=== PATIENT | female | born 1990 | race Caucasian/White ===

== ENCOUNTER 2016-10-14 23:05 | Emergency (ER) | payer OTHER ==
[~2016-10-14] VITALS: Ht 180.3 cm; Wt 65.0 kg
[~2016-10-14 23:05] MED LIST: AUGMENTIN875 MG PO; CELEXA20 MG PO; CLEOCIN150 MG PO; FEOSOL325 MG PO; FERROUS SULFAT325 MG PO; IBUPROFEN800 MG PO; MOTRIN600 MG PO; NO HOME MEDS; NORCO 5/3251 TABLET PO; ONDANSETRON HCL8 MG PO; PEN-VEE K,VEET500 MG PO; PERCOCET 5/31 TABLET PO; PNV PRENATAL P1 EACH PO; REGLAN10 MG PO; SERTRALINE HCL100 MG PO; SERTRALINE HCL50 MG PO; SPRINTEC1 EACH PO; ULTRAM50 MG PO; ZANTAC150 MG PO; ZOFRAN4 MG PO; ZOFRAN8 MG PO
[2016-10-14 23:58] LABS: HEMATOCRIT 35.8 % (36.0-46.0); MCH 27.5 PG (29.0-34.0); MCHC 32.1 G/DL (30.0-36.0); MCV 85.6 FL (83-99); MEAN PLAT.VOLUME 10.1 uM^3 (9.5-12.4); PLATELET COUNT 279 K/uL (156-360); RBC DIS.WIDTH-CV 13.7 % (11.8-14.6); RBC DIS.WIDTH-SD 42.8 % (39-53); RED BLOOD COUNT 4.18 M/uL (3.80-5.20); WHITE BLOOD COUNT 6.5 K/uL (4.1-10.2)
[2016-10-15 00:07] LABS: CHLORIDE 107 mEq/L (99-109); POTASSIUM 4.1 mEq/L (3.7-5.4); SODIUM 142 mEq/L (136-147)
[2016-10-15 00:09] LABS: GLUCOSE 104 mg/dL (70-99)
[2016-10-15 00:10] LABS: ADD MIUA? YES; BILIRUBIN NEGATIVE; BLOOD NEGATIVE; COLOR YELLOW ((YELLOW)); GLUCOSE (STRIP) NEGATIVE; KETONES NEGATIVE; LEUKOCYTES NEGATIVE; NITRITE NEGATIVE; PROTEIN (STRIP) 30; SPECIFIC GRAVITY 1.028 (1.000-1.030); UROBILINOGEN 0.2 MG/DL (0.2-1.0)
[2016-10-15 00:10] LABS: ANION GAP 7 MEQ/L (2-14)
[2016-10-15 00:11] LABS: TOTAL BILIRUBIN 0.4 mg/dL (0.0-1.0)
[2016-10-15 00:13] LABS: ALKALINE PHOSPHATASE 38 IU/L (3-129); GFR ESTIMATE (CALCULATED) > 59 mL/min/
[2016-10-15 00:14] LABS: BACTERIA NONE SEEN /HPF; EPITHELIAL CELLS RARE /HPF; MUCUS 1+ /LPF; RED BLOOD CELLS 0-5 /HPF (0-5); UCUL ADDED? NO; WHITE BLOOD CELLS 0-5 /HPF (0-5)
[2016-10-15 00:14] LABS: UREA NITROGEN (BUN) 15 mg/dL (9-23)
[2016-10-15 00:21] LABS: QUANTITATIVE HCG < 4.0 MIU/ML
[2016-10-15 01:26] LABS: LIPASE 38 U/L (1.0-51.0)
[2016-10-15] MEDS ORDERED: NAPROXEN500 MG PO (02:23)
[2016-10-15 02:39] VITALS: BP 100/64
== END 2016-10-15 02:41 | disposition home or self-care (01) ==
LOC: EME 23:05
DX: R10.84 Generalized abdominal pain (principal); R63.4 Abnormal weight loss; R05 Cough; R20.0 Anesthesia of skin; R23.3 Spontaneous ecchymoses; Z68.1 Body mass index [BMI] 19.9 or less, adult
CPT/HCPCS: 74022; 80053; 81003; 83690; 84443; 84702; 85027; 99281; 99284

== ENCOUNTER 2017-01-23 12:35 | Emergency (ER) | payer OTHER ==
[~2017-01-23] VITALS: Ht 180.3 cm; Wt 66.7 kg
[~2017-01-23 12:35] MED LIST changes: +NAPROXEN500 MG PO
[2017-01-23 13:10] LABS: HEMATOCRIT 34.9 % (36.0-46.0); MCH 28.3 PG (29.0-34.0); MCHC 32.7 G/DL (30.0-36.0); MCV 86.6 FL (83-99); MEAN PLAT.VOLUME 10.3 uM^3 (9.5-12.4); PLATELET COUNT 222 K/uL (156-360); RBC DIS.WIDTH-CV 13.2 % (11.8-14.6); RBC DIS.WIDTH-SD 42.1 % (39-53); RED BLOOD COUNT 4.03 M/uL (3.80-5.20); WHITE BLOOD COUNT 4.5 K/uL (4.1-10.2)
[2017-01-23 13:19] LABS: CHLORIDE 109 mEq/L (99-109); POTASSIUM 4.2 mEq/L (3.7-5.4); SODIUM 142 mEq/L (136-147)
[2017-01-23 13:21] LABS: GLUCOSE 92 mg/dL (70-99)
[2017-01-23 13:22] LABS: ANION GAP 7 MEQ/L (2-14)
[2017-01-23 13:24] LABS: GFR ESTIMATE (CALCULATED) > 59 mL/min/
[2017-01-23 13:25] LABS: UREA NITROGEN (BUN) 6 mg/dL (9-23)
[2017-01-23 13:30] LABS: TROP-I INTERPRETATION NEGATIVE; TROPONIN-I < 0.01 ng/mL (0.0-0.30)
[2017-01-23 16:20] LABS: TROP-I INTERPRETATION NEGATIVE; TROPONIN-I < 0.01 ng/mL (0.0-0.30)
[2017-01-23] MEDS ORDERED: PEN-VEE K,VEET500 MG PO (16:37)
[2017-01-23] MEDS ORDERED: TYLENOL WITH C1 EACH PO (16:37)
[2017-01-23 16:48] VITALS: BP 129/56
== END 2017-01-23 16:51 | disposition home or self-care (01) ==
LOC: EME 12:35
PROVIDERS: Physician Assistant Medical
DX: K08.89 Other specified disorders of teeth and supporting structures (principal); R07.9 Chest pain, unspecified; R10.9 Unspecified abdominal pain; K02.9 Dental caries, unspecified
CPT/HCPCS: 71020; 80048; 84484; 85027; 93005; 99281; 99284

== ENCOUNTER 2017-10-08 23:06 | Emergency (ER) | payer OTHER ==
[~2017-10-08] VITALS: Ht 180.3 cm; Wt 70.9 kg
[~2017-10-08 23:06] MED LIST changes: +TYLENOL WITH C1 EACH PO
[2017-10-08 23:39] LABS: HEMATOCRIT 35.3 % (36.0-46.0); HEMOGLOBIN 11.7 G/DL (11.9-15.5); MCH 28.5 PG (29.0-34.0); MCHC 33.1 G/DL (30.0-36.0); MCV 86.1 FL (83-99); PLATELET COUNT 247 K/uL (156-360); RBC DIS.WIDTH-SD 40.7 % (39-53); WHITE BLOOD COUNT 5.2 K/uL (4.1-10.2)
[2017-10-08 23:55] LABS: CHLORIDE 106 mEq/L (99-109); SODIUM 140 mEq/L (136-147)
[2017-10-08 23:57] LABS: GLUCOSE 104 mg/dL (70-99)
[2017-10-09 00:01] LABS: CREATININE 0.8 mg/dL (0.6-1.3); GFR ESTIMATE (CALCULATED) > 59 mL/min/; TROP-I INTERPRETATION NEGATIVE; TROPONIN-I < 0.01 ng/mL (0.0-0.30)
[2017-10-09 00:02] LABS: UREA NITROGEN (BUN) 14 mg/dL (9-23)
[2017-10-09] MEDS ORDERED: FLEXERIL10 MG PO (01:52)
[2017-10-09] MEDS ORDERED: NAPROSYN500 MG PO (01:52)
[2017-10-09 02:21] VITALS: BP 107/61
== END 2017-10-09 02:23 | disposition home or self-care (01) ==
LOC: EME 23:06
DX: R07.89 Other chest pain (principal); S16.1XXA Strain of muscle, fascia and tendon at neck level, initial encounter; X58.XXXA Exposure to other specified factors, initial encounter
CPT/HCPCS: 71046; 80048; 84484; 85027; 93005; 99281; 99284